=== PATIENT | female | born 1995 | race Two or more races ===

== ENCOUNTER 2017-06-12 21:04 | Emergency (ER) | payer OTHER ==
[~2017-06-12] VITALS: Ht 165.1 cm; Wt 59.0 kg
[2017-06-12] MEDS ORDERED: AUGMENTIN 875-1 EACH PO (21:21)
== END 2017-06-12 21:31 | disposition home or self-care (01) ==
LOC: ED 21:04
DX: S71.152A Open bite, left thigh, initial encounter (principal); W54.0XXA Bitten by dog, initial encounter
CPT/HCPCS: 99283